=== PATIENT | male | born 1930 | race Caucasian/White ===

== ENCOUNTER → 2016-10-26 | Outpatient (CLI) | payer MEDICARE ==
[2016-10-26 14:30] LABS: EKG EKG PERFORMED
[2016-10-26 15:02] LABS: Basophils % (A) 0 %; CH 32.1; Eosinophils % (A) 0 %; HCT 39.9 % (39.0-53.0); HDW 3.14; HGB 12.6 gm/dL (13.0-17.5); Luc # (Auto) 0.09; Luc % (Auto) 2; Lymphocytes # (A) 0.7 k/uL (1.0-4.8); Lymphocytes % (A) 12 %; MCH 30.9 pg (25.0-35.0); MCHC 31.6 g/dL (31.0-37.0); MCV 97.8 fL (80.0-100.0); Mean Platelet Volume 8.1; Monocytes # (A) 0.4 k/uL (0-1.0); Monocytes % (A) 6 %; Neutrophils # (A) 4.4 k/uL (1.3-7.7); Neutrophils % (A) 79 %; RBC 4.08 m/uL (4.30-5.90); RDW 14.8 % (11.5-15.5); WBC 5.5 k/uL (3.8-10.6)
[2016-10-26 15:12] LABS: Anion Gap 15 mmol/L; Blood Urea Nitrogen 18 mg/dL (9-20); Calcium 9.4 mg/dL (8.4-10.2); Carbon Dioxide 23 mmol/L (22-30); Chloride 101 mmol/L (98-107); Glucose 92 mg/dL (74-99); Non-African American GFR(MDRD) >60 (>60 ml/min/1.73 sqM); Potassium 4.1 mmol/L (3.5-5.1); Sodium 139 mmol/L (137-145)
== END | disposition home or self-care (01) ==
LOC: LABPAT 14:19
PROVIDERS: ATTEND Urology
DX: I10 Essential (primary) hypertension (principal); C67.4 Malignant neoplasm of posterior wall of bladder; Z01.812 Encounter for preprocedural laboratory examination; Z01.818 Encounter for other preprocedural examination
CPT/HCPCS: 80048; 85025; 93005

== ENCOUNTER 2016-11-02 08:43 | Day surgery (SDC) | payer MEDICARE ==
[2016-10-31 16:07] VITALS: BMI 23.3
[~2016-11-02 08:43] MED LIST: LACTATED RINGERS 1,000 ML IV SCH; MIDAZOLAM 2 MG/2 ML VIAL IV PRN; ONDANSETRON 4 MG/2 ML VIAL IVP ONE; Pre Op ABX Message 1 EACH MISC MISCELLANE ONE
[2016-11-02 10:04] LABS: CH 31.8; CHCM 33.4; HCT 38.7 % (39.0-53.0); HDW 3.08; HGB 12.5 gm/dL (13.0-17.5); MCH 30.8 pg (25.0-35.0); MCHC 32.2 g/dL (31.0-37.0); MCV 95.6 fL (80.0-100.0); Mean Platelet Volume 7.9; RBC 4.05 m/uL (4.30-5.90); RDW 15.1 % (11.5-15.5)
[2016-11-02 10:23] LABS: Anion Gap 11 mmol/L; Blood Urea Nitrogen 21 mg/dL (9-20); Calcium 9.3 mg/dL (8.4-10.2); Carbon Dioxide 25 mmol/L (22-30); Chloride 103 mmol/L (98-107); Glucose 85 mg/dL (74-99); Non-African American GFR(MDRD) >60 (>60 ml/min/1.73 sqM); Sodium 139 mmol/L (137-145)
[2016-11-02 10:28] LABS: Potassium 4.3 mmol/L (3.5-5.1)
[2016-11-02] MEDS ORDERED: ePHEDrine 50 MG/ML 1 ML AMP ONE (10:44)
[2016-11-02] MEDS ORDERED: PROPOFOL 10 MG/ML 20 ML VIAL IV ONE (10:44)
[2016-11-02] MEDS ORDERED: fentaNYL (PF) 50 MCG/ML 2 ML AMP ONE (10:44)
[2016-11-02] MEDS ORDERED: LIDOCAINE 1% INJ 10MG/ML (20 ML MDV) ONE (10:44)
[2016-11-02] MEDS ORDERED: SUCCINYLCHOLINE CHLORIDE 100 MG/5 ML SYR IV ONE (10:44)
[2016-11-02] MEDS ORDERED: LACTATED RINGERS 1,000 ML IV ONE (12:06)
[2016-11-02 12:36] VITALS: TEMP 99.1
[2016-11-02 12:49] VITALS: RESP 16
[2016-11-02 13:37] VITALS: PULSE 68
[2016-11-02 14:24] VITALS: BP 147/93
--- NOTE | 2016-11-08 18:22 | P.OP ---
Date of Procedure: 11/02/16 Preoperative Diagnosis: Urothelial Carcinoma of the Bladder, Urethral Bleeding Postoperative Diagnosis: Same Procedure(s) Performed: Urethroscopy, urethral biopsies, Holmium laser ablation of urethral tumors Anesthesia: JIMA Surgeon: Barney Gibbons Estimated Blood Loss (ml): 20 IV fluids (ml): 800 Pathology: other (urethral biopsies) Condition: stable Disposition: PACU Indications for Procedure: He is an 86 year old male who underwent a radical cystoprostatectomy in 2008 for urothelial carcinoma of the bladder. He has had no recurrences, but has experienced intermittent urethral bleeding. 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 Urethral washings were negative, but urethroscopy has shown multiple small lesions within the penile urethra suspicious for malignancy. He will undergo Holmium laser ablation of these lesions soon. Operative Findings: Multiple small, papillary tumors involving the penile urethra. Description of Procedure: The patient was taken to the operati and placed in the dorsolithotomy position, with his legs supported in Mark stirrups. The external genitalia was prepped and draped sterilely. The 30 lens was used to introduce the 17 [place] Stortz cystoscopic sheath through the urethra, up to the level of the membranous urethra at which point the urethra terminated. Some bloody debris was noted within the urethra. After irrigating the urethra, the urethra was visually inspected. The bulbous urethra appeared normal. However, multiple tumors were seen within the penile urethra. These were small and had a papillary appearance. Cold cup biopsy forceps were used to obtain multiple biopsies. Next, the 365 micron Holmium laser probe was passed through the cystoscope. The laser was used to ablate many of the tumors. It was not possible to ablate all of the tumors in one setting, but the majority were treated. None had a high-grade, invasive appearance. The cystoscope was removed and the procedure was terminated. The patient tolerated the procedure well and was taken to the recovery room in stable condition.
== END 2016-11-02 15:16 | disposition home or self-care (01) ==
LOC: OR 08:43
PROVIDERS: ATTEND Urology
DX: C67.4 Malignant neoplasm of posterior wall of bladder (principal); C79.19 Secondary malignant neoplasm of other urinary organs; I10 Essential (primary) hypertension; Z85.05 Personal history of malignant neoplasm of liver; Z92.21 Personal history of antineoplastic chemotherapy; Z85.46 Personal history of malignant neoplasm of prostate; M19.90 Unspecified osteoarthritis, unspecified site; Z79.82 Long term (current) use of aspirin; Z79.891 Long term (current) use of opiate analgesic; Z79.899 Other long term (current) drug therapy; Z88.5 Allergy status to narcotic agent; Z88.7 Allergy status to serum and vaccine; Z88.8 Allergy status to other drugs, medicaments and biological substances; Z91.048 Other nonmedicinal substance allergy status; Z87.891 Personal history of nicotine dependence
CPT/HCPCS: 88305; 80048; 85027; 88342; 88341; 52224; C1758; J2405; J2001; J3010; J0330; J2704

== ENCOUNTER → 2016-12-12 | Outpatient (CLI) | payer MEDICARE ==
[2016-12-12 14:17] LABS: Basophils % (A) 0 %; CHCM 33.4; Eosinophils % (A) 1 %; HCT 36.1 % (39.0-53.0); HDW 3.29; Luc # (Auto) 0.11; Luc % (Auto) 2; Lymphocytes # (A) 0.9 k/uL (1.0-4.8); Lymphocytes % (A) 18 %; MCHC 33.2 g/dL (31.0-37.0); MCV 96.4 fL (80.0-100.0); Monocytes # (A) 0.4 k/uL (0-1.0); Monocytes % (A) 7 %; Neutrophils # (A) 3.6 k/uL (1.3-7.7); Neutrophils % (A) 72 %; RBC 3.75 m/uL (4.30-5.90); RDW 14.7 % (11.5-15.5); WBC 5.1 k/uL (3.8-10.6); WBC (Perox) 5.23
[2016-12-12 14:45] LABS: Anion Gap 13 mmol/L; Blood Urea Nitrogen 15 mg/dL (9-20); Calcium 8.8 mg/dL (8.4-10.2); Carbon Dioxide 24 mmol/L (22-30); Chloride 101 mmol/L (98-107); Glucose 102 mg/dL (74-99); Non-African American GFR(MDRD) >60 (>60 ml/min/1.73 sqM); Potassium 3.9 mmol/L (3.5-5.1); Sodium 138 mmol/L (137-145)
== END | disposition home or self-care (01) ==
LOC: LABPAT 13:41
PROVIDERS: ATTEND Urology
DX: Z01.812 Encounter for preprocedural laboratory examination (principal); C61 Malignant neoplasm of prostate; C67.9 Malignant neoplasm of bladder, unspecified
CPT/HCPCS: 80048; 85025

== ENCOUNTER 2016-12-20 07:42 | Day surgery (SDC) | payer MEDICARE ==
[2016-12-18 10:06] VITALS: BMI 24.0
[~2016-12-20 07:42] MED LIST changes: +FAMOTIDINE 20 MG/2 ML VIAL IV PRN; +LIDOCAINE 1% 20 ML VIAL (10MG/ML) FOR IV START INTRADERMA PRN; -MIDAZOLAM 2 MG/2 ML VIAL IV PRN; -ONDANSETRON 4 MG/2 ML VIAL IVP ONE; +fentaNYL (PF) 50 MCG/ML 2 ML AMP IV PRN
[2016-12-20] MEDS ORDERED: ePHEDrine 50 MG/ML 1 ML AMP ONE (09:41)
[2016-12-20] MEDS ORDERED: LIDOCAINE 1% INJ 10MG/ML (20 ML MDV) ONE (09:41)
[2016-12-20] MEDS ORDERED: PROPOFOL 10 MG/ML 20 ML VIAL IV ONE (09:41)
[2016-12-20] MEDS ORDERED: fentaNYL (PF) 50 MCG/ML 2 ML AMP ONE (09:41)
[2016-12-20] MEDS ORDERED: LACTATED RINGERS 1,000 ML IV ONE (10:41)
[2016-12-20 11:11] VITALS: TEMP 96.8
[2016-12-20 11:34] VITALS: RESP 16
--- NOTE | 2016-12-20 11:43 | P.OP ---
Date of Procedure: 12/20/16 Preoperative Diagnosis: Urethral Carcinoma Postoperative Diagnosis: Same Procedure(s) Performed: Ureteroscopy with Holmium Laser Ablation of Urethral Tumors Anesthesia: RODRIGUEZ Surgeon: Barney Gibbons Estimated Blood Loss (ml): 10 IV fluids (ml): 900 Pathology: other (Urethral tumor fragments) Condition: stable Disposition: PACU Indications for Procedure: He is an 86 year old male who underwent a radical cystoprostatectomy in 2008 for urothelial carcinoma of the bladder. He has had no recurrences, but has experienced intermittent urethral bleeding. Urethral washings were negative, but urethroscopy revealed multiple small lesions within the penile urethra which were biopsy proven to be malignant. He underwent Holmium laser ablation of these tumors, and the procedure will now be repeated. Operative Findings: Probable residual tumor. Penile Urethral Stricture. Description of Procedure: The patient was taken to the operating room and placed in the dorsolithotomy position, with his legs supported in Mark stirrups. The external genitalia was prepped and draped sterilely. The 30 lens was used to introduce the 17 [place] Stortz cystoscopic sheath through the urethra. A stricture was encountered within the penile urethra, through which the cystoscope was gently advanced up to the level of the membranous urethra, at which point the urethra terminated. Some bloody debris was noted within the urethra. After irrigating the urethra, the urethra was visually inspected. The bulbous urethra appeared normal. However, a small number of tumors were seen within the penile urethra. The urethral mucosa was irregular, and it was difficult to determine what was tumor versus scar/inflammation. The 550 micron Holmium laser probe was passed through the cystoscope. The laser was used to ablate all visible tumors. Several tumor fragments were retrieved and sent for pathologic examination. The cystoscope was removed and the procedure was terminated. The patient tolerated the procedure well and was taken to the recovery room in stable condition.
[2016-12-20 13:09] VITALS: BP 133/55; PULSE 75
== END 2016-12-20 14:15 | disposition home or self-care (01) ==
LOC: OR 07:42
PROVIDERS: ATTEND Urology
DX: C68.0 Malignant neoplasm of urethra (principal); Z85.46 Personal history of malignant neoplasm of prostate; Z85.51 Personal history of malignant neoplasm of bladder; Z85.05 Personal history of malignant neoplasm of liver; Z92.21 Personal history of antineoplastic chemotherapy; I10 Essential (primary) hypertension; Z79.82 Long term (current) use of aspirin; Z79.891 Long term (current) use of opiate analgesic; Z79.899 Other long term (current) drug therapy; Z88.5 Allergy status to narcotic agent; Z88.7 Allergy status to serum and vaccine; Z88.8 Allergy status to other drugs, medicaments and biological substances; Z87.891 Personal history of nicotine dependence
CPT/HCPCS: 52214; 88305; 88342; 88341; C1769; C1894; J2001; J3010; J2704